=== PATIENT | male | born 1960 | race Caucasian/White ===

== ENCOUNTER 2025-05-24 08:49 | Outpatient (CLI) | payer BC, SELFPAY | END 2025-05-24 08:50 | disposition home or self-care (01) | PROVIDERS: PCP Internal Medicine; Visit Provider Internal Medicine | DX: E78.5 Hyperlipidemia, unspecified (principal); N52.9 Male erectile dysfunction, unspecified | CPT/HCPCS: 80053; 80061; G0103 ==

== ENCOUNTER 2025-06-28 08:13 | Outpatient (CLI) | payer BC, SELFPAY | END 2025-06-28 08:14 | disposition home or self-care (01) | LOC: OP CLINIC 08:15 | PROVIDERS: PCP Internal Medicine; Visit Provider Surgery | DX: Z12.11 Encounter for screening for malignant neoplasm of colon (principal); D12.4 Benign neoplasm of descending colon | CPT/HCPCS: 45385 ==